=== PATIENT | female | born 1980 | race Caucasian/White ===

== ENCOUNTER → 2018-10-23 | Emergency (ER) ==
[~2018-10-23] VITALS: Ht 165.1 cm; Wt 74.1 kg
== END ==
LOC: COL.ER 14:12
DX: F15.93 Other stimulant use, unspecified with withdrawal (principal)

== ENCOUNTER 2018-11-08 12:22 | Emergency (ER) | payer MEDICAID ==
[~2018-11-08] VITALS: Ht 165.1 cm; Wt 72.7 kg
[2018-11-08 12:31] VITALS: TEMP 97.6
[2018-11-08 13:15] LABS: COLLECTION METHOD CLEAN CATCH
[2018-11-08 13:28] LABS: MUCOUS Present /lpf; PH 5 (5-8); URINE APPEARANCE Clear; URINE BACTERIA None Seen /hpf; URINE BILIRUBIN Negative (NEGATIVE); URINE BLOOD Negative (NEGATIVE); URINE COLOR Yellow; URINE GLUCOSE Negative (NEGATIVE); URINE KETONE Negative (NEGATIVE); URINE LEUKOCYTE ESTERASE Negative (NEGATIVE); URINE NITRATE Negative (NEGATIVE); URINE PROTEIN(semi-quant) Negative (NEGATIVE); URINE RBC 0-2 /hpf; URINE UROBILINOGEN Negative (NEGATIVE)
[2018-11-08 13:32] LABS: BASO # 0.1 (0.0-0.2); BASO % 0.7 % (0.0-2.0); EOS # 0.2 (0.0-0.7); EOS % 2.4 % (0-4.0); GRAN # 5.4 (1.4-6.5); GRAN % 59.8 % (42.2-75.2); HEMOGLOBIN 16.5 g/dl (12.5-16.0); LYMPH # 2.7 (1.2-3.4); LYMPH % 30.3 % (20.0-51.0); MEAN CELL VOLUME 93 fl (80.0-100.0); MEAN CORPUSCULAR HEMOGLOBIN 32 pg (27.0-31.0); MEAN CORPUSCULAR HGB CONC 34 g/dl (33.0-37.0); MEAN PLATELET VOLUME 9.1 fl (7.4-10.4); MONO # 0.6 (0.1-0.6); MONO % 6.5 % (1.7-9.3); PLATELET COUNT 279 K/mm3 (130-400); RED BLOOD COUNT 5.19 M/mm3 (4.10-5.30); REDCELL DISTRIBUTION WIDTH-CV 13.2 % (11.5-14.5)
[2018-11-08 13:44] LABS: TRICYCLIC ANTIDEPRESS URINE NEGATIVE
[2018-11-08 13:46] LABS: ALANINE AMINOTRANSFERASE 15 U/L (9-52); ALBUMIN 4.5 gm/dL (3.5-5.0); ALKALINE PHOSPHATASE 99 U/L (50-136); ANION GAP 10 mmol/L (7-16); AST,SGOT 25 U/L (15-37); BILIRUBIN,TOTAL 0.5 mg/dL (0.0-1.0); BLOOD UREA NITROGEN 19 mg/dL (7-17); C-REACTIVE PROTEIN 0.9 mg/dL (0.0-0.9); CALCIUM 9.5 mg/dL (8.4-10.2); CARBON DIOXIDE 21 mmol/L (22-30); CHLORIDE 108 mmol/L (98-107); CREATININE, serum 0.56 (0.52-1.25); GLUCOSE 92 mg/dL (74-106); LIPASE 58 U/L (23-300); SODIUM 138 mmol/L (137-145); TOTAL PROTEIN 7.8 gm/dL (6.4-8.2)
[2018-11-08 13:55] LABS: TROPONIN-I < 0.012 ng/mL (0.000-0.035)
--- NOTE | 2018-11-08 15:07 | NUR ---
MAZIN student and worker responded to a older adult social work specialist referral. The patient moved to [place] approximately 3 weeks ago from [place] with her mom and her two kids, a girl and a boy. The patient, the kids and mom are living with her aunt. The patient does not have a PCP. MAZIN mckay provided list of providers and with a patient registration packet for [employer]. The patient inquired about food resources. MAZIN mckay provided a resource packet to the patient and explained which agencies provide meals, assistance with medications, funds and housing information. The patient has [place] Medicaid. Tawny Chavez, financial counselor met with the patient to discuss the application process for [place] Medicaid. Worker gave information to the patient regarding the [facility] Community Care Team (CCT). The patient was agreeable. MAZIN mckay provided the authorization to release/obtain protected information. Patient was agreeable and signed the form. A copy was provided to the patient. MAZIN mckay collaborated the above information with the patient's nurse.
[2018-11-08 16:09] VITALS: BP 170/102; PULSE 87
[2018-11-08] MEDS ORDERED: OMEGA-3 FISH1000 MG PO (17:33)
[2018-11-08] MEDS ORDERED: NEURONTIN300 MG/CAP PO (17:35)
[2018-11-08] MEDS ORDERED: LAMICTAL200 MG PO (17:36)
[2018-11-08] MEDS ORDERED: CENTRUM1 TA1 PO (17:37)
[2018-11-08] MEDS ORDERED: CONTRAVE1 TER PO (17:38)
[2018-11-08] MEDS ORDERED: ZOFRAN 4MG T4 MG/TAB PO (17:39)
[2018-11-08] MEDS ORDERED: INDERAL LA 80MG80 MG PO (17:39)
[2018-11-08] MEDS ORDERED: SEROQUEL300 MG PO (17:40)
[2018-11-08] MEDS ORDERED: JANUVIA 100MG100 MG PO (17:41)
[2018-11-08] MEDS ORDERED: ACIPHEX20 MG PO (17:41)
[2018-11-08] MEDS ORDERED: OS-CAL 500 + D1 TAB PO (17:42)
[2018-11-08] MEDS ORDERED: LIPITOR 10MG10 MG PO (17:42)
[2018-11-08] MEDS ORDERED: CYMBALTA 60MG60 MG PO (17:43)
[2018-11-08] MEDS ORDERED: VITAMIN B125000 MCG PO (17:43)
[2018-11-08] MEDS ORDERED: DESYREL 100MG100 MG PO (17:44)
[2018-11-08] MEDS ORDERED: TOPAMAX50 MG PO (17:44)
== END 2018-11-08 16:20 | disposition home or self-care (01) ==
LOC: COL.ER 12:22
PROVIDERS: Physician Assistant
DX: R07.89 Other chest pain (principal); K21.9 Gastro-esophageal reflux disease without esophagitis; J45.909 Unspecified asthma, uncomplicated; I10 Essential (primary) hypertension; F17.210 Nicotine dependence, cigarettes, uncomplicated
CPT/HCPCS: J2270; J2550; J7030

== ENCOUNTER 2019-02-25 11:41 | Emergency (ER) | payer MEDICAID ==
[~2019-02-25] VITALS: Ht 165.1 cm; Wt 81.8 kg
[~2019-02-25 11:41] MED LIST: ACIPHEX20 MG PO; CENTRUM1 TA1 PO; CONTRAVE1 TER PO; CYMBALTA 60MG60 MG PO; DESYREL 100MG100 MG PO; INDERAL LA 80MG80 MG PO; JANUVIA 100MG100 MG PO; LAMICTAL200 MG PO; LIPITOR 10MG10 MG PO; NEURONTIN300 MG/CAP PO; OMEGA-3 FISH1000 MG PO; OS-CAL 500 + D1 TAB PO; SEROQUEL300 MG PO; TOPAMAX50 MG PO; VITAMIN B125000 MCG PO; ZOFRAN 4MG T4 MG/TAB PO
[2019-02-25 11:45] VITALS: TEMP 97.9
[2019-02-25] MEDS ORDERED: PRINZIDE 12.5 M1 TAB (11:51)
[2019-02-25] MEDS ORDERED: ULTRAM 50MG TAB50 MG PO (13:26)
[2019-02-25] MEDS ORDERED: AMOXICILLIN 50500 MG PO (13:26)
[2019-02-25] MEDS ORDERED: NORVASC 5MG5 MG/TAB PO (13:26)
[2019-02-25 14:23] VITALS: BP 142/102; PULSE 79
== END 2019-02-25 14:20 | disposition home or self-care (01) ==
LOC: COL.ER 11:41
DX: S50.01XA Contusion of right elbow, initial encounter (principal); S60.221A Contusion of right hand, initial encounter; K04.7 Periapical abscess without sinus; I10 Essential (primary) hypertension; F17.210 Nicotine dependence, cigarettes, uncomplicated; Z88.2 Allergy status to sulfonamides; W19.XXXA Unspecified fall, initial encounter

== ENCOUNTER 2019-02-26 09:26 | Emergency (ER) | payer MEDICAID ==
[~2019-02-26] VITALS: Ht 165.1 cm; Wt 81.8 kg
[~2019-02-26 09:26] MED LIST changes: +AMOXICILLIN 50500 MG PO; +NORVASC 5MG5 MG/TAB PO; +PRINZIDE 12.5 M1 TAB; +ULTRAM 50MG TAB50 MG PO
[2019-02-26 09:32] VITALS: TEMP 97.7
[2019-02-26 11:00] VITALS: BP 129/89; PULSE 79
== END 2019-02-26 11:00 | disposition home or self-care (01) ==
LOC: COL.ER 09:26
DX: K02.9 Dental caries, unspecified (principal); I10 Essential (primary) hypertension; F17.210 Nicotine dependence, cigarettes, uncomplicated; Z91.14 Patient's other noncompliance with medication regimen
CPT/HCPCS: J0780; J1170

== ENCOUNTER 2019-04-20 11:31 | Emergency (ER) | payer MEDICAID ==
[~2019-04-20] VITALS: Ht 165.1 cm; Wt 81.8 kg
[2019-04-20 11:34] VITALS: BP 141/95; TEMP 98.4
[2019-04-20] MEDS ORDERED: PROAIR HFA0.09 MG/AC IH (12:25)
[2019-04-20] MEDS ORDERED: TAMIFLU 75MG75 MG PO (12:25)
[2019-04-20 12:28] VITALS: PULSE 98
== END 2019-04-20 12:30 | disposition home or self-care (01) ==
LOC: COL.ER 11:31
DX: J10.1 Influenza due to other identified influenza virus with other respiratory manifestations (principal); F41.9 Anxiety disorder, unspecified; J45.909 Unspecified asthma, uncomplicated; F17.210 Nicotine dependence, cigarettes, uncomplicated; Z98.890 Other specified postprocedural states

== ENCOUNTER 2019-06-23 21:12 | Emergency (ER) | payer MEDICAID ==
[~2019-06-23] VITALS: Ht 165.1 cm; Wt 81.8 kg
[~2019-06-23 21:12] MED LIST changes: +PROAIR HFA0.09 MG/AC IH; +TAMIFLU 75MG75 MG PO
[2019-06-23 21:16] VITALS: TEMP 98.8
[2019-06-23] MEDS ORDERED: NORCO 325 MG-51 TAB PO (22:09)
[2019-06-23] MEDS ORDERED: AMOXICILLIN 8751 TAB PO (22:09)
[2019-06-23 22:17] VITALS: BP 154/92
[2019-06-23] MEDS ORDERED: PRINZIDE 12.5 M1 TAB PO ×2 (22:21→22:32)
[2019-06-23 22:41] VITALS: PULSE 95
== END 2019-06-23 22:40 | disposition home or self-care (01) ==
LOC: COL.ER 21:12
DX: K08.89 Other specified disorders of teeth and supporting structures (principal); J32.9 Chronic sinusitis, unspecified; F17.210 Nicotine dependence, cigarettes, uncomplicated; Z88.2 Allergy status to sulfonamides

== ENCOUNTER 2020-06-21 11:10 | Emergency (ER) | payer MEDICAID ==
[~2020-06-21] VITALS: Ht 165.1 cm; Wt 90.9 kg
[~2020-06-21 11:10] MED LIST changes: +AMOXICILLIN 8751 TAB PO; +NORCO 325 MG-51 TAB PO; +PRINZIDE 12.5 M1 TAB PO
[2020-06-21 11:55] LABS: BASO % 0.5 % (0.0-2.0); EOS # 0.1 (0.0-0.7); GRAN # 3.3 (1.4-6.5); GRAN % 55.3 % (42.2-75.2); HEMATOCRIT 46.7 % (37.0-47.0); HEMOGLOBIN 16.4 g/dl (12.5-16.0); LYMPH # 2.3 (1.2-3.4); LYMPH % 38.1 % (20.0-51.0); MEAN CELL VOLUME 94 fl (80.0-100.0); MEAN CORPUSCULAR HEMOGLOBIN 33 pg (27.0-31.0); MEAN CORPUSCULAR HGB CONC 35 g/dl (33.0-37.0); MEAN PLATELET VOLUME 10.1 fl (7.4-10.4); MONO # 0.3 (0.1-0.6); MONO % 4.8 % (1.7-9.3); PLATELET COUNT 187 K/mm3 (130-400); RED BLOOD COUNT 4.98 M/mm3 (4.10-5.30); REDCELL DISTRIBUTION WIDTH-CV 13.7 % (11.5-14.5)
[2020-06-21 12:02] LABS: ALBUMIN 3.9 gm/dL (3.5-5.0); BILIRUBIN,TOTAL 0.5 mg/dL (0.0-1.0); CREATININE, serum 0.48 (0.52-1.25); MAGNESIUM 1.6 mg/dL (1.6-2.3); POTASSIUM 4.2 mmol/L (3.4-5.0); TOTAL PROTEIN 7.6 gm/dL (6.4-8.2)
[2020-06-21 12:13] LABS: ALCOHOL(ethanol),MEDICAL < 10 mg/dL
[2020-06-21 12:28] LABS: TROPONIN-I < 0.012 ng/mL (0.000-0.035)
[2020-06-21 13:35] LABS: COLLECTION METHOD CLEAN CATCH
[2020-06-21] MEDS ORDERED: GLUCOPHAGE500 MG/TAB PO (13:57)
[2020-06-21 14:07] LABS: MUCOUS Present /lpf; PH 6 (5-8); SQUAMOUS EPITHELIAL 0-2 /hpf; URINE APPEARANCE Clear; URINE BACTERIA None Seen /hpf; URINE BILIRUBIN Negative (NEGATIVE); URINE BLOOD Negative (NEGATIVE); URINE COLOR Yellow; URINE GLUCOSE 1+ (NEGATIVE); URINE KETONE Negative (NEGATIVE); URINE LEUKOCYTE ESTERASE Negative (NEGATIVE); URINE NITRATE Negative (NEGATIVE); URINE PROTEIN(semi-quant) Negative (NEGATIVE); URINE RBC 0-2 /hpf; URINE UROBILINOGEN Negative (NEGATIVE)
[2020-06-21 14:52] VITALS: BP 175/114; PULSE 84; TEMP 98
== END 2020-06-21 14:54 | disposition home or self-care (01) ==
LOC: COL.ER 11:10
PROVIDERS: Emergency Medicine
DX: E11.9 Type 2 diabetes mellitus without complications (principal); R74.01 Elevation of levels of liver transaminase levels; I10 Essential (primary) hypertension; Z88.2 Allergy status to sulfonamides; Z88.8 Allergy status to other drugs, medicaments and biological substances; Z79.899 Other long term (current) drug therapy
CPT/HCPCS: J7030

== ENCOUNTER 2021-02-26 18:18 | Emergency (ER) | payer MEDICAID ==
[~2021-02-26] VITALS: Ht 165.1 cm; Wt 90.9 kg
[~2021-02-26 18:18] MED LIST changes: +GLUCOPHAGE500 MG/TAB PO
[2021-02-26 18:25] VITALS: TEMP 97.5
[2021-02-26] MEDS ORDERED: MEDROL 4MG DOSPA4 MG PO (18:56)
[2021-02-26] MEDS ORDERED: PERCOCET 325 MG1 TA2 PO (18:56)
[2021-02-26] MEDS ORDERED: AMOXICILLIN 50500 MG PO (18:58)
[2021-02-26 19:28] VITALS: BP 168/98; PULSE 89
== END 2021-02-26 19:31 | disposition home or self-care (01) ==
LOC: COL.ER 18:18
DX: M26.621 Arthralgia of right temporomandibular joint (principal); I10 Essential (primary) hypertension; Z79.899 Other long term (current) drug therapy
CPT/HCPCS: J1885